=== PATIENT | female | born 1965 | race Hispanic/Latino ===

== ENCOUNTER 2017-09-07 10:32 | Emergency (ER) | payer MEDICARE, OTHER ==
[2017-09-07 10:35] VITALS: BMI 37.0
--- NOTE | 2017-09-07 10:53 | ED PDOC ---
Arrival/HPI - General Chief Complaint: Chest Pain Time Seen by Provider: 09/07/17 10:42 Historian: Patient - History of Present Illness Narrative History of Present Illness (Text): 09/07/17 10:46 A 52 year old female, whose past medical history includes hypertension and epilepsy, presents to the emergency department complaining of left-sided chest pain since this morning. Patient reports she awoke this morning with pain. Also , she mentions this occurred before 1 week ago and was uncertain whether or not to contact PMD. Patient denies of any other complaints at this time. PMD: Dr. Jackson Past Medical History - Provider Review Nursing Documentation Reviewed: Yes - Infectious Disease Hx of Infectious Diseases: None - Cardiac Hx Hypertension: Yes Other/Comment: heart attack 2014 - Pulmonary Hx Respiratory Disorders: No - Neurological Hx Seizures: Yes (LAST EPISODE 2004) - HEENT Hx HEENT Disorder: No - Renal Hx Renal Disorder: No - Endocrine/Metabolic Hx Endocrine Disorders: No - Hematological/Oncological Hx Blood Disorders: No - Integumentary Hx Dermatological Disorder: No - Musculoskeletal/Rheumatological Hx Musculoskeletal Disorders: No - Gastrointestinal Hx Diverticulitis: Yes - Genitourinary/Gynecological Hx Genitourinary Disorders: No - Psychiatric Hx Anxiety: Yes Hx Bipolar Disorder: Yes Hx Substance Use: No - Surgical History Other/Comment: reversal of colostomy - Anesthesia Hx Anesthesia: No Hx Anesthesia Reactions: No Hx Malignant Hyperthermia: No - Suicidal Assessment Feels Threatened In Home Enviroment: No Family/Social History - Physician Review Nursing Documentation Reviewed: Yes Family/Social History: No Known Family HX Smoking Status: Former Smoker Hx Alcohol Use: No Hx Substance Use: No Hx Substance Use Treatment: No Allergies/Home Meds Allergies/Adverse Reactions: Allergies dust Allergy (Uncoded 05/14/15 11:55) ITCHING Home Medications: Home Meds Medication Instructions Recorded Confirmed Aspirin [Aspirin Low Dose] 81 mg PO DAILY 05/17/15 09/07/17 Losartan [Cozaar] 50 mg PO DAILY 09/07/17 09/07/17 Review of Systems - Physician Review All systems were reviewed & negative as marked: Yes - Review of Systems Constitutional: absent: Fevers Respiratory: absent: SOB Cardiovascular: Chest Pain (left sided chest pain) Physical Exam Vital Signs Reviewed: Yes Vital Signs Temp Pulse Resp BP Pulse Ox 09/07/17 12:53 98.2 F 69 16 135/86 96 09/07/17 12:28 67 18 142/96 H 99 09/07/17 11:40 98.0 F 69 18 133/86 97 09/07/17 10:32 98.1 F 75 18 142/98 H 97 Temperature: Afebrile Blood Pressure: Normal Pulse: Regular Respiratory Rate: Normal Appearance: Positive for: Well-Appearing Pain Distress: None Mental Status: Positive for: Alert and Oriented X 3 - Systems Exam Head: Present: Atraumatic, Normocephalic Pupils: Present: PERRL Extroacular Muscles: Present: EOMI Conjunctiva: Present: Normal Mouth: Present: Moist Mucous Membranes Neck: Present: Normal Range of Motion Respiratory/Chest: Present: Clear to Auscultation, Good Air Exchange. No: Respiratory Distress, Accessory Muscle Use Cardiovascular: Present: Regular Rate and Rhythm, Normal S1, S2. No: Murmurs Abdomen: Present: Normal Bowel Sounds. No: Tenderness, Distention, Peritoneal Signs Back: Present: Normal Inspection Upper Extremity: Present: Normal Inspection. No: Cyanosis, Edema Lower Extremity: Present: Normal Inspection. No: Edema Neurological: Present: GCS=15, CN II-XII Intact, Speech Normal Skin: Present: Warm, Dry, Normal Color. No: Rashes Psychiatric: Present: Alert, Oriented x 3, Normal Insight, Normal Concentration Medical Decision Making ED Course and Treatment: 09/07/17 10:50 Impression: 52 year old female with left-sided chest pain. Physical exam is benign. Plan: -- EKG -- Chest X-ray -- Labs -- Urinalysis -- Aspirin -- Reassess and disposition Prior Visits: Notes and results from previous visits were reviewed. Patient was last seen in the emergency department on 05/14/2015 for chest pain. Patient was admitted. Progress Notes: EKG: Ordered, reviewed, and independently interpreted the EKG. Rate : 72 BPM Rhythm : NSR Interpretation : No ST-segment elevations or depressions, no T-wave inversions, normal intervals. Comparison : No previous EKG for comparison. 09/07/17 12:30 Leaving Against Medical Advice (AMA): The patient is choosing to leave against medical advice. I have personally explained to the patient that choosing to do so may result in permanent bodily harm or . I have discussed at great length that without further evaluation and monitoring there may be unforeseen circumstances and/or deterioration causing permanent bodily harm or as a result of their choice. The patient is alert, oriented, and shows the mental capacity to make clear decisions regarding the patients health care at this time. The patient continues to wish to leave against medical advice. In light of the patients decision to leave against medical advice, follow-up has been arranged and the patient is aware of the importance to following up as instructed. The patient has been advised that they should return to the emergency room immediately if they change their mind at any time, or if their condition begins to change or worsen in any way. 09/07/2017 12:34 Chest X-ray IMPRESSION: No active disease. Dictator: Jose J Chun MD 09/07/17 16:15 pt with cp < 6 hr, need 2nd set. refuses. signs ama. - Lab Interpretations Lab Results: 09/07/17 10:55 09/07/17 10:55 Lab Results 09/07/17 11:15: Urine Color Light yellow, Urine Appearance Sl cloudy, Urine pH 7.0, Ur Specific [place] 1.010, Urine Protein Negative, Urine Glucose (UA) Negative, Urine Ketones Negative, Urine Blood Small H, Urine Nitrate Negative, Urine Bilirubin Negative, Urine Urobilinogen 0.2, Ur Leukocyte Esterase Moderate H, Urine RBC 1 - 3, Urine WBC 15 - 20, Ur Epithelial Cells Many, Urine Bacteria Mod, Urine HCG, Qual Negative 09/07/17 10:55: Sodium 137, Potassium 3.8, Chloride 103, Carbon Dioxide 25, Anion Gap 14, BUN 5 L, Creatinine 0.7, Est GFR ( Amer) > 60, Est GFR (Non -Af Amer) > 60, Random Glucose 115 H, Calcium 9.1, Magnesium 1.7, Total Bilirubin 0.7, AST 28, ALT 30, Alkaline Phosphatase 100, Lactate Dehydrogenase 353, Total Creatine Kinase 49, Troponin I < 0.01 D, Total Protein 7.3, Albumin 4.1, Globulin 3.1, Albumin/Globulin Ratio 1.3 09/07/17 10:55: PT 11.6, INR 1.05, APTT 29.4 09/07/17 10:55: WBC 8.9, RBC 5.48, Hgb 12.1, Hct 38.9, MCV 71.0 L, MCH 22.1 L, MCHC 31.1, RDW 20.1 H, Plt Count 397, MPV 8.7, Gran % 69.3 H, Lymph % (Auto) 20.7 L, [place] % (Auto) 5.7, Eos % (Auto) 4.0, Baso % (Auto) 0.3, Gran # 6.17, Lymph # 1.9, G[place]ard # 0.5, Eos # 0.4, Baso # 0.03 I have reviewed the lab results: Yes - RAD Interpretation Radiology Orders: 09/07/17 10:49 CHEST PORTABLE [RAD] Stat - Medication Orders Current Medication Orders: Discontinued Medications Aspirin (Aspirin) 325 mg PO STAT STA Stop: 09/07/17 10:50 Last Admin: 09/07/17 11:01 Dose: 325 mg Ceftriaxone Sodium (Rocephin 2 Gm Ivpb) 2 gm in 100 mls @ 100 mls/hr IVPB STAT STA PRN Reason: Protocol Stop: 09/07/17 12:44 Last Admin: 09/07/17 12:21 Dose: 100 mls/hr eMAR Start Stop Document 09/07/17 12:21 SRE (Rec: 09/07/17 12:22 SRE [id number]) Intravenous Solution Start Date 09/07/17 Start Time 12:22 End Date 09/07/17 End time 13:20 Total Infusion Time 58 - Scribe Statement The provider has reviewed the documentation as recorded by the Becca Vora Provider Scribe Attestation: All medical record entries made by the Scribdelphine were at my direction and personally dictated by me. I have reviewed the chart and agree that the record accurately reflects my personal performance of the history, physical exam, medical decision making, and the department course for this patient. I have also personally directed, reviewed, and agree with the discharge instructions and disposition. Disposition/Present on Arrival - Present on Arrival Any Indicators Present on Arrival: No History of DVT/PE: No History of Uncontrolled Diabetes: No Urinary Catheter: No History of Decub. Ulcer: No History Surgical Site Infection Following: None - Disposition Have Diagnosis and Disposition been Completed?: Yes Diagnosis: Chest pain Disposition: AGAINST MEDICAL ADVICE Disposition Time: 01:00 Condition: STABLE Discharge Instructions (ExitCare): Chest Pain (ED), Against Medical Advice (ED) Additional Instructions: return to er with worsening symptos or concerns. you are refusing admission. you are able to return to er with worsening symptoms or concerns. Referrals: Mykel Donato MD [Staff Provider] - Follow up with primary Forms: [employer] (Romansh)
[2017-09-07 11:08] LABS: BASO # 0.03 K/mm3 (0.0-2.0); BASO % 0.3 % (0.0-3.0); EOS # 0.4 (0.0-0.7); GRAN # 6.17 (1.4-6.5); GRAN % 69.3 % (50.0-68.0); HEMATOCRIT 38.9 % (36.0-48.0); LYMPH # 1.9 (1.2-3.4); LYMPH % 20.7 % (22.0-35.0); MEAN CORPUSCULAR HEMOGLOBIN 22.1 pg (25.0-35.0); MEAN CORPUSCULAR HGB CONC 31.1 g/dl (31.0-37.0); MEAN PLATELET VOLUME 8.7 fl (7.0-11.0); MONO # 0.5 (0.1-0.6); MONO % 5.7 % (1.0-6.0); RED CELL DISTRIBUTION WIDTH 20.1 % (11.5-14.5); WHITE BLOOD COUNT 8.9 10^3/ul (4.5-11.0)
[2017-09-07 11:15] LABS: INR 1.05 (0.93-1.08)
[2017-09-07 11:16] LABS: PARTIAL THROMBOPLASTIN TIME 29.4 Seconds (25.1-36.5)
[2017-09-07 11:25] LABS: URINE BILIRUBIN NEGATIVE (NEGATIVE); URINE BLOOD SMALL (NEGATIVE); URINE GLUCOSE (UA) NEGATIVE (NEGATIVE); URINE KETONE NEGATIVE (NEGATIVE); URINE LEUKOCYTE ESTERASE MODERATE Leu/uL (NEGATIVE); URINE PROTEIN NEGATIVE mg/dL (<30 mg/dL); URINE UROBILINOGEN 0.2 E.U./dL (<1 E.U./dL)
[2017-09-07 11:41] LABS: URINE APPEARANCE SL CLOUDY (CLEAR); URINE COLOR LIGHT YELLOW (YELLOW)
[2017-09-07 11:42] LABS: URINE WBC 15 - 20 /hpf (0-6)
[2017-09-07 11:43] LABS: URINE BACTERIA MOD (NEG); URINE EPITHELIAL CELLS MANY /hpf (0-5)
[2017-09-07] MEDS ORDERED: cefTRIAXone 2 GM IN NS 2 GM/100 ML BAG IVPB STA (11:45)
[2017-09-07 12:18] LABS: SODIUM 137 mmol/L (132-148)
[2017-09-07 12:19] LABS: POTASSIUM 3.8 mmol/L (3.6-5.0)
[2017-09-07 12:22] LABS: ALT/SGPT 30 U/L (7-56)
[2017-09-07 12:23] LABS: TROPONIN I < 0.01 ng/mL
--- NOTE | 2017-09-07 12:36 | RAD ---
HISTORY: cp COMPARISON: 05/14/2015 FINDINGS: LUNGS: No active pulmonary disease. PLEURA: No significant pleural effusion identified, no pneumothorax apparent. CARDIOVASCULAR: Normal. OSSEOUS STRUCTURES: No significant abnormalities. VISUALIZED UPPER ABDOMEN: Normal. OTHER FINDINGS: None. IMPRESSION: No active disease.
[2017-09-07 13:00] VITALS: BP 135/86; PULSE 69; RESP 16; TEMP 98.2; O2SAT 96
[2017-09-07 13:20] LABS: GLUCOSE,RANDOM 115 mg/dL (70-110)
[2017-09-07 13:21] LABS: ALB/GLOB RATIO 1.3 (1.1-1.8); ALKALINE PHOSPHATASE 100 U/L (38-126); AST/SGOT 28 U/L (14-36); BILIRUBIN,TOTAL 0.7 mg/dL (0.2-1.3); BLOOD UREA NITROGEN 5 mg/dL (7-21); CALCIUM 9.1 mg/dL (8.4-10.5); CARBON DIOXIDE 25 mmol/L (21-33); CHLORIDE 103 mmol/L (98-107); GFR AFRICAN-AMERICAN > 60; MAGNESIUM 1.7 mg/dL (1.7-2.2); TOTAL PROTEIN 7.3 g/dL (5.8-8.3)
--- NOTE | 2017-09-07 13:33 | CARD ---
APPROVED REPORT EKG Measurement Heart [id number] <Conclusion> Normal sinus rhythm
== END 2017-09-07 13:12 | disposition left against medical advice (07) ==
LOC: ED 10:32
DX: R07.9 Chest pain, unspecified (principal); I25.2 Old myocardial infarction; I10 Essential (primary) hypertension; Z87.891 Personal history of nicotine dependence
CPT/HCPCS: 71010; 80053; 81001; 82550; 83615; 83735; 84484; 84703; 85025; 85610; 85730; 87086; 93005; 96365; 99285; J0696

== ENCOUNTER 2019-02-21 10:36 | Outpatient (CLI) | payer MEDICARE | END 2019-02-21 10:37 | disposition home or self-care (01) | LOC: RAD 10:36 ==